=== PATIENT | female | born 1985 | race Caucasian/White ===

== ENCOUNTER → 2017-04-15 | Outpatient (CLI) | payer BC ==
[2016-02-27 10:07] VITALS: BP 106/62
--- NOTE | 2017-04-16 08:03 | US ---
HISTORY: Bilateral breast lumps Bilateral digital diagnostic mammography with CAD and bilateral breast ultrasound. Comparison: None FINDINGS: Mammogram: Bilateral CC and MLO projections of the right and left breast were obtained utilizing both full-field and push back techniques with bilateral subpectoral saline implants appearing grossly int act. Heterogeneously dense fibroglandular tissue is seen to be present. No dominant suspicious arch itectural distortion, mass or clustered microcalcifications can be observed to suggest malignancy. T here are regions of focal asymmetry in the upper medial right and lower outer left breast which demon strate intervening foci of lucency most likely reflecting benign asymmetrical fibroglandular parenchy ma but which will be correlated with ultrasound. No suspicious mammographic findings are seen in the region of the palpable abnormalities but will also be correlated with ultrasound. No skin thickening or nipple retraction is appreciated. No pathological lymphadenopathy can be identified. Ultrasound: Multiple grayscale and color Doppler images of both breasts were obtained. The right [address] st was imaged from 9-3 o'clock through the superior breast, in the left breast was imaged from 12-6 o 'clock through the lateral breast. Dense fibrocystic changes are noted scattered throughout. At 12 o' clock on the left approximately 3 cm from the nipple, there is a horizontally oriented smoothly valentin nated and well circumscribed 2-3 mm predominantly anechoic cyst with posterior acoustical enhancement and no internal Doppler flow with equivocal trace internal debris/septation versus decreased resolut ion secondary to the small size most compatible with a minimally complex cyst. No suspicious cystic o r solid nodules are seen to warrant biopsy. IMPRESSION: Probably benign regions of bilateral focal asymmetry corresponding to dense fibrocystic changes and a mildly complex cyst 12 o'clock left breast for which six-month follow-up bilateral mamm ography and left breast ultrasound are recommended to document stability and establish a baseline. ACR CATEGORY 3 - probably benign findings; short interval follow-up suggested. Diagnostic CAD was utilized and reviewed. * 0 (ZERO) - ASSESSMENT INCOMPLETE; ADDITIONAL IMAGING IS NEEDED. * / (ONE) - NEGATIVE. * 2/II (TWO) - BENIGN FINDINGS. * 3/III (THREE) - PROBABLY BENIGN FINDING; SHORT INTERVAL FOLLOW-UP SUGGESTED. * 4/IV (FOUR) - SUSPICIOUS ABNORMALITY; BIOPSY SHOULD BE CONSIDERED. * 5/V - HIGHLY SUSPICIOUS OF MALIGNANCY; BIOPSY SHOULD BE PERFORMED. A NEGATIVE X-RAY REPORT SHOULD NOT DELAY BIOPSY IF A DOMINANT OR CLINICALLY SUSPICIOUS MASS IS PRESENT; 4 TO 8 PERCENT OF CANCERS ARE NOT IDENTIFIED BY X-RAY. A NEGA TIVE REPORT MAY REINFORCE THE CLINICAL IMPRESSION. ADENOSIS AND DENSE BREASTS MAY OBSCURE AN UNDERLY ING NEOPLASM. Reported By:
== END ==
LOC: RAD 14:16
PROVIDERS: ATTEND Internal Medicine
DX: N64.59 Other signs and symptoms in breast (principal)
CPT/HCPCS: 76642; 77066

== ENCOUNTER → 2017-04-30 | Outpatient (CLI) | payer BC ==
[2016-02-27 10:07] VITALS: BP 106/62
[2017-04-30 11:23] LABS: BASOPHILS % (AUTO) 0.7 % (0.2-1.0); EOSINOPHILS # (AUTO) 0.1 x10^3/uL (0.0-0.2); EOSINOPHILS % (AUTO) 2.7 % (0.9-2.9); HEMATOCRIT 36.7 % (36.0-47.0); HEMOGLOBIN 12.4 g/dL (12.0-16.0); LYMPHOCYTES # (AUTO) 1.6 X10^3/uL (1.3-2.9); LYMPHOCYTES % (AUTO) 30.1 % (21.0-51.0); MEAN CORPUSCULAR HEMOGLOBIN 30.2 pg (27.0-34.0); MEAN CORPUSCULAR HGB CONC 33.9 g/dL (33.0-35.0); MEAN PLATELET VOLUME 8.3 fL (7.4-11.0); MONOCYTES # (AUTO) 0.3 x10^3/uL (0.3-0.8); MONOCYTES % (AUTO) 5.1 % (0.0-13.0); NEUTROPHILS # (AUTO) 3.3 x10^3/uL (2.2-4.8); NEUTROPHILS % (AUTO) 61.4 % (42.0-75.0); PLATELET COUNT 223 X10^3/uL (150.0-450.0); RED BLOOD COUNT 4.12 X10^6/uL (3.5-5.4); RED CELL DISTRIBUTION WIDTH 12.9 % (11.6-16.5); WHITE BLOOD COUNT 5.3 X10^3/uL (3.6-10.0)
[2017-04-30 11:33] LABS: BILIRUBIN,URINE NEGATIVE (NEGATIVE); BLOOD/HEMOGLOBIN,URINE NEGATIVE (NEGATIVE); GLUCOSE, URINE NEGATIVE (NEGATIVE); KETONES,URINE NEGATIVE (NEGATIVE); LEUKOCYTE ESTERASE ,URINE NEGATIVE (NEGATIVE); NITRITES,URINE NEGATIVE (NEGATIVE); PROTEIN,URINE NEGATIVE (NEGATIVE); UROBILINOGEN,URINE NORMAL (NORMAL)
[2017-04-30 11:34] LABS: ALANINE AMINOTRANSFERASE 15 Units/L (12-78); ALBUMIN 3.4 g/dL (3.4-5.0); ALKALINE PHOSPHATASE 54 Units/L (46-116); ASPARTATE AMINO TRANSFERASE 13 Units/L (15-37); BLOOD UREA NITROGEN 14 mg/dL (7-18); CALCIUM 8.4 mg/dL (8.5-10.1); CARBON DIOXIDE 27.6 mmol/L (21-32); CHLORIDE 104 mmol/L (98-107); CREATININE 0.81 mg/dL (0.55-1.02); SODIUM 139 mmol/L (136-145); TOTAL PROTEIN 6.7 g/dL (6.4-8.2); eGFR BLACK RACES > 60 (>60); eGFR NON BLACK RACES > 60 (>60)
[2017-04-30 11:35] LABS: SERUM PREGNANCY TEST, QUAL NEGATIVE <10 mIU/mL
[2017-04-30 11:35] LABS: APPEARANCE,URINE CLEAR (CLEAR); COLOR,URINE YELLOW (YELLOW)
[2017-04-30 12:08] LABS: BACTERIA,URINE NEGATIVE /HPF (NEGATIVE); RBC,URINE NONE SEEN /HPF (NEGATIVE); SQUAMOUS EPITHELIAL CELL,UR FEW /HPF (NEGATIVE)
[2017-04-30 12:13] LABS: ERYTHROCYTE SEDIMENTATION RATE 3 MM/HOUR (0-20)
[2017-05-05 06:05] LABS: ANTI-NUCLEAR ANTIBODY TEST None Detected (None Detected)
[2017-05-05 10:20] LABS: SCL-70 ANTIBODY 0
== END ==
LOC: LAB 10:50
PROVIDERS: ATTEND Internal Medicine
DX: M06.4 Inflammatory polyarthropathy (principal); G90.4 Autonomic dysreflexia; R11.0 Nausea; R10.84 Generalized abdominal pain
CPT/HCPCS: 36415; 80053; 81001; 84703; 85025; 85652; 86140; 86235; 86308; 86677

== ENCOUNTER 2018-10-03 06:30 | Inpatient (IN) ==
[~2018-10-03 06:30] MED LIST: 1/2 NS IV ONE; D5 1/2 NS 1000 ML IV ONE; D5 IV ONE; D5LR IV ONE; LR IV ONE; PITOCIN IV ONE; [UNRECOGNIZED DRUG - OTHER] IV ONE; [UNRECOGNIZED DRUG - OTHER] IV ONE
[2018-10-03] MEDS ORDERED: NEO-SYNEPHRINE INJ ONE (10:00)
[2018-10-03] MEDS ORDERED: DIPRIVAN VIAL ONE (10:00)
[2018-10-03] MEDS ORDERED: XYLOCAINE 2 % (PLAIN) ONE (10:00)
[2018-10-03] MEDS ORDERED: EPHEDRINE SULFATE INJ ONE (10:00)
[2018-10-03] MEDS ORDERED: MARCAINE SPINAL ONE (10:00)
[2018-10-03] MEDS ORDERED: ZOFRAN INJ 4 MG VIAL ONE (10:00)
[2018-10-03] MEDS ORDERED: REGLAN INJ 10 MG VIAL ONE (10:00)
[2018-10-03] MEDS ORDERED: CYTOTEC VG ONE (14:30)
[2018-10-03] MEDS ORDERED: NS IRRIGATION 1000 ML ONE (15:38)
[2018-10-03] MEDS ORDERED: LR ONE (15:48)
[2018-10-03] MEDS ORDERED: D5 1/2 NS 1000 ML IV ONE (18:30)
[2018-10-03] MEDS ORDERED: DILAUDID INJ IVP ONE (19:30)
[2018-10-03] MEDS ORDERED: DECADRON INJ IM ONE (19:30)
[2018-10-03] MEDS ORDERED: XYLOCAINE-MPF 1% IJ ONE (19:30)
[2018-10-03] MEDS ORDERED: ANCEF 1 GRAM IV PREMIX IV ONE (19:30)
[2018-10-03] MEDS ORDERED: SUPRANE IN ONE (19:40)
[2018-10-03] MEDS ORDERED: LR IV ONE (19:40)
[2018-10-04] MEDS ORDERED: PERCOCET TAB 5/325 MG PO ONE ×2 (08:00→14:00)
[2018-10-04] MEDS ORDERED: PriLOSEC PO ONE ×3 (09:00→22:00)
[2018-10-04] MEDS ORDERED: REGLAN INJ 10 MG VIAL IVP ONE (09:00)
[2018-10-04] MEDS ORDERED: COLACE CAP 100 MG PO ONE ×2 (09:00→22:26)
[2018-10-04] MEDS ORDERED: MOTRIN TAB 800 MG PO ONE (15:00)
[2018-10-04] MEDS ORDERED: BACTROBAN CREAM TOP ONE (22:00)
[2018-10-04] MEDS ORDERED: BENADRYL CAP/TAB 25 MG PO ONE (22:26)
[2018-10-07] MEDS ORDERED: MORPHINE SULFATE INJ 2 MG INJ IVP PRN (15:38)
[2018-10-07] MEDS ORDERED: NUBAIN INJ 200 MG VIAL MULTIDOSE IVP PRN (15:38)
[2018-10-07] MEDS ORDERED: D5LR 1L W PITOCIN 10 UNITS/L 10 UNITS/1,000 ML BAG IV PRN (15:38)
[2018-10-07] MEDS ORDERED: PHENERGAN INJ 25 MG IM PRN (15:38)
[2018-10-07] MEDS ORDERED: PITOCIN IVP ONE (15:38)
[2018-10-07] MEDS ORDERED: D5 1/2 NS 1000 ML 1,000 ML IV SCH (15:38)
[2018-10-07] MEDS ORDERED: REGLAN INJ 10 MG VIAL IVP PRN (15:38)
[2018-10-07 17:09] VITALS: BP 133/88
[2018-10-10 10:18] LABS: BLOOD UREA NITROGEN 10 mg/dL (7-18); CALCIUM 8.6 mg/dL (8.5-10.1); CARBON DIOXIDE 20.8 mmol/L (21-32); CHLORIDE 106 mmol/L (98-107); CREATININE 0.66 mg/dL (0.55-1.02); SODIUM 138 mmol/L (136-145); eGFR NON BLACK RACES > 60 (>60)
[2018-10-10 10:19] LABS: ALANINE AMINOTRANSFERASE 23 Units/L (12-78); ALBUMIN 2.4 g/dL (3.4-5.0); ALKALINE PHOSPHATASE 173 Units/L (46-116); ASPARTATE AMINO TRANSFERASE 24 Units/L (15-37); COR CA(FOR HYPOALB) 9.9 mg/dL (8.5-10.1); LACTATE DEHYDROGENASE 185 Units/L (81-234); TOTAL PROTEIN 6.1 g/dL (6.4-8.2)
[2018-10-10 10:23] LABS: HEMATOCRIT 33.7 % (36.0-47.0); HEMOGLOBIN 11.3 g/dL (12.0-16.0); LYMPHOCYTES % (AUTO) 19.5 % (21.0-51.0); MEAN CORPUSCULAR HEMOGLOBIN 30.4 pg (27.0-34.0); MEAN CORPUSCULAR HGB CONC 33.5 g/dL (33.0-35.0); MEAN CORPUSCULAR VOLUME 90.7 fL (80.0-100.0); MEAN PLATELET VOLUME 10.2 fL (7.4-11.0); MONOCYTES % (AUTO) 5.7 % (0.0-13.0); NEUTROPHILS % (AUTO) 73.6 % (42.0-75.0); PLATELET COUNT 113 X10^3/uL (150.0-450.0); RED BLOOD COUNT 3.71 X10^6/uL (3.5-5.4); WHITE BLOOD COUNT 6.2 X10^3/uL (3.6-10.0)
[2018-10-10 10:24] LABS: BASOPHILS % (AUTO) 0.2 % (0.2-1.0); EOSINOPHILS # (AUTO) 0.1 x10^3/uL (0.0-0.2); LYMPHOCYTES # (AUTO) 1.2 X10^3/uL (1.3-2.9); MONOCYTES # (AUTO) 0.4 x10^3/uL (0.3-0.8); NEUTROPHILS # (AUTO) 4.5 x10^3/uL (2.2-4.8)
[2018-10-10 14:58] LABS: HEMATOCRIT 28.3 % (36.0-47.0); HEMOGLOBIN 9.4 g/dL (12.0-16.0)
== END 2018-10-05 15:00 | disposition home or self-care (01) | DRG 788 ==
LOC: LD 06:30 → UNDODISIN 10-05 15:00
PROVIDERS: ADMIT Specialist; ATTEND Specialist
DX: Z3A.39 39 weeks gestation of pregnancy; D50.8 Other iron deficiency anemias; Z37.0 Single live birth; O62.0 Primary inadequate contractions; O99.613 Diseases of the digestive system complicating pregnancy, third trimester; O13.3 Gestational [pregnancy-induced] hypertension without significant proteinuria, third trimester
CPT/HCPCS: 36415; 80053; 83615; 84550; 85014; 85018; 85025; 85384; 85610; 85730; S0191; J0690; J1100; J1170; J2370; J2405; J2590; J2704; J2765; J3490; J7120; S5010